=== PATIENT | female | born 1985 | race Caucasian/White ===

== ENCOUNTER 2019-11-12 21:34 | Emergency (ER) | payer MEDICAID ==
[2019-11-12] MEDS ORDERED: KETOROLAC 60 MG/2 ML VIAL IM STA (22:59)
--- NOTE | 2019-11-12 23:35 | ED ---
Abdominal Pain HPI - General Chief Complaint: Abdominal Pain Stated Complaint: Cyst on ovary Time Seen by Provider: 11/12/19 22:17 Source: patient Mode of arrival: ambulatory Limitations: no limitations - History of Present Illness Initial Comments: Patient is a 34-year-old female presenting to emergency Department with complaints of left-sided ovary pain 2 days. Patient was seen at [facility] last month and was diagnosed with a 3 cm left ovarian cyst. She did have a follow-up appointment with an PEN RULER OPERATOR and they started her on control pills to help with her symptoms. She started those yesterday. Patient is having increased pain the last 2 days. She states the pain feels the same as it did before. She denies history of abdominal surgeries. She denies history of diverticulitis. She denies fever, vomiting, diarrhea. She does admit to mild nausea when the pain increases. She has no other complaints at this time. Apparently ER, patient was slightly tachycardia at 112, rest of vitals normal. - Related Data Allergies Allergy/AdvReac Type Severity Reaction Status Date / Time No Known Allergies Allergy Verified 11/12/19 21:55 Review of Systems ROS Statement: Those systems with pertinent positive or pertinent negative responses have been documented in the HPI. ROS Other: All systems not noted in ROS Statement are negative. Past Medical History Past Medical History: GERD/Reflux Additional Past Medical History / Comment(s): ovarian cyst History of Any Multi-Drug Resistant Organisms: None Reported Past Surgical History: Adenoidectomy, Tonsillectomy Past Psychological History: No Psychological Hx Reported Smoking Status: Never smoker Past Alcohol Use History: Occasional Past Drug Use History: Marijuana General Exam - General Exam Comments Initial Comments: GENERAL: Well-appearing, well-nourished and in no acute distress. HEAD: Atraumatic, normocephalic. EYES: Pupils equal round and reactive to light, extraocular movements intact, sclera anicteric, conjunctiva are normal. ENT: TMs normal, nares patent, oropharynx clear without exudates. Moist mucous membranes. NECK: Normal range of motion, supple without lymphadenopathy or JVD. LUNGS: Breath sounds clear to auscultation bilaterally and equal. No wheezes rales or rhonchi. HEART: Regular rate and rhythm without murmurs, rubs or gallops. ABDOMEN: Left lower quadrant tenderness, no other abdominal pain. Soft, normoactive bowel sounds. No guarding, no rebound. No masses appreciated. : Deferred EXTREMITIES: Normal range of motion, no pitting or edema. No clubbing or cyanosis. NEUROLOGICAL: Normal speech, normal gait. PSYCH: Normal mood, normal affect. SKIN: Warm, Dry, normal turgor, no rashes or lesions noted. Limitations: no limitations Course Vital Signs 11/12/19 11/13/19 21:49 00:31 Temperature 99.3 F 98.3 F Pulse Rate 112 H 88 Respiratory 18 16 Rate Blood Pressure 127/80 126/80 O2 Sat by Pulse 99 97 Oximetry Medical Decision Making - Medical Decision Making Patient is 34-year-old female presenting with left lower quadrant pain. She has known left ovarian cyst. I attempted to get records from [facility] from patient's recent visit however they declined to send over records. Given this I ordered an ultrasound. Ultrasound shows an enlarged left ovary that could relate to a hemorrhagic cyst. No evidence of ovarian torsion. Patient will follow up with PEN RULER OPERATOR. Urine is normal, non. She will continue with control pills that she is a 29. Prescribed. Referral to an PEN RULER OPERATOR was given. Patient stable for discharge at this time and she is in agreement with this plan of care. Case discussed with Dr. quiles. - Lab Data Lab Results 11/12/19 11/12/19 Range/Units 23:38 23:38 Urine Color Yellow Urine Appearance Cloudy H (Clear) Urine pH 5.5 (5.0-8.0) Ur Specific [place] 1.028 (1.001-1.035) Urine Protein 1+ H (Negative) Urine Glucose (UA) Negative (Negative) Urine Ketones Negative (Negative) Urine Blood Large H (Negative) Urine Nitrite Negative (Negative) Urine Bilirubin Negative (Negative) Urine Urobilinogen <2.0 (<2.0) mg/dL Ur Leukocyte Esterase Small H (Negative) Urine RBC 12 H (0-5) /hpf Urine WBC 10 H (0-5) /hpf Ur Squamous Epith Cells 4 (0-4) /hpf Urine Bacteria Rare H (None) /hpf Hyaline Casts 1 (0-2) /lpf Urine Mucus Moderate H (None) /hpf Urine HCG, Qual Not Detected (Not Detectd) Disposition Clinical Impression: Left ovarian cyst, Abdominal pain Disposition: HOME SELF-CARE Condition: Stable Instructions (If sedation given, give patient instructions): Ovarian Cyst (ED) Additional Instructions: Please return to the Emergency Department if symptoms worsen or any other concerns. With PEN RULER OPERATOR as discussed. Is patient prescribed a controlled substance at d/c from ED?: No Referrals: Jaskaran Nassar DO [Primary Care Provider] - 1-2 days Sher Morillo MD [STAFF PHYSICIAN] - 1-2 days
--- NOTE | 2019-11-12 23:44 | US ---
EXAMINATION TYPE: US transvaginal DATE OF EXAM: 11/12/2019 COMPARISON: NONE CLINICAL HISTORY: LLQ pain, hx of large left cyst. Left pelvic pain, history of ovarian cysts, gravid a 1, para 1, patient on control. TECHNIQUE: Transvaginal ER exam. Date of LMP: 11/11/2019 EXAM MEASUREMENTS: Uterus: 7.7 x 3.5 x 4.2 cm Endometrial Stripe: 0.4 cm Right Ovary: not seen Left Ovary: 6.5 x 5.0 x 5.9 cm Difficult and limited study due to patient body habitus 1. Uterus: heterogeneous 2. Endometrium: wnl 3. Right Ovary: not seen 4. Left Ovary: 4.1 x 4.2 x 4.2cm isoechoic mass Spectral, color and waveform doppler imaging shows good arterial and venous flow within the left ov jf; there is no evidence for ovarian torsion within the left ovary. 5. Bilateral Adnexa: wnl 6. Posterior cul-de-sac: wnl IMPRESSION: Normal uterus and endometrium. Enlarged left ovary that could relate to the presence of hemorrhagic cyst. Follow-up is recommended. No evidence of ovarian torsion. Right ovary not seen.
[2019-11-12 23:53] LABS: Appearance,Urine Cloudy (Clear); Bacteria,Urine Rare /hpf; Bilirubin,Urine Negative (Negative); Blood,Urine Large (Negative); Color,Urine Yellow; Glucose,Urine (UA) Negative (Negative); Hyaline Casts,Urine 1 /lpf (0-2); Ketones,Urine Negative (Negative); Leukocyte Esterase,Urine Small (Negative); Mucus,Urine Moderate /hpf; Nitrite,Urine Negative (Negative); PH, Urine 5.5 (5.0-8.0); Protein,Urine 1+ (Negative); RBC,Urine 12 /hpf (0-5); Specific Gravity,Urine 1.028 (1.001-1.035); Squamous Epithelial Cell,Urine 4 /hpf (0-4); Urobilinogen,Urine <2.0 mg/dL (<2.0); WBC,Urine 10 /hpf (0-5)
[2019-11-13 00:31] VITALS: BP 126/80; PULSE 88; RESP 16; TEMP 98.3
== END 2019-11-13 00:45 | disposition home or self-care (01) ==
LOC: EC 21:34
DX: N83.202 Unspecified ovarian cyst, left side (principal); R11.0 Nausea; Z79.3 Long term (current) use of hormonal contraceptives
CPT/HCPCS: 81001; 81025; 93976; 76830; 99284; 96372; J1885

== ENCOUNTER 2025-01-02 13:53 | Emergency (ER) | payer MEDICAID ==
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
[2025-01-02] MEDS: MORPHINE SULFATE 4 MG/ML SYRINGE IVP PRN ×2 (14:14→14:48)
[2025-01-02] MEDS: SODIUM CHLORIDE 0.9% 1,000 ML IV STA (14:17)
--- NOTE | 2025-01-02 14:38 | XR ---
EXAMINATION TYPE: XR forearm RT DATE OF EXAM: 01/02/2025 2:29 PM COMPARISON: None. CLINICAL INDICATION: Female, 39 years old with history of wrist deformity, pain TECHNIQUE: XR forearm RT XX views were obtained. FINDINGS: Comminuted and angulated distal radial fracture with overriding fracture components seen. Intra-artic ular extension not excluded. Soft tissue edema and deformity seen. No additional fractures are eviden t at this time. IMPRESSION: As above [facility], , 01/02/2025 2:36 PM
[2025-01-02] MEDS: PROPOFOL 10 MG/ML 20 ML VIAL IV ONE (15:02)
--- NOTE | 2025-01-02 15:35 | XR ---
EXAMINATION TYPE: XR wrist limited RT DATE OF EXAM: 01/02/2025 CLINICAL HISTORY: pain TECHNIQUE: 2 postreduction views obtained COMPARISON: None. FINDINGS: Previously described comminuted distal radial fracture is redemonstrated with slightly improved align ment. Overlying cast material does obscure fine bony detail. No additional fractures seen. IMPRESSION: Slightly improved alignment [facility], , 01/02/2025 3:33 PM
[2025-01-02 15:53] VITALS: BP 136/77; PULSE 88; RESP 17
[2025-01-02] MEDS: HYDROmorphone 0.5 MG/0.5 ML SYRINGE IVP STA (16:06)
[2025-01-02 16:22] VITALS: TEMP 98
== END 2025-01-02 16:22 | disposition home or self-care (01) ==
LOC: EC 13:53
DX: S52.501A Unspecified fracture of the lower end of right radius, initial encounter for closed fracture (principal); W18.30XA Fall on same level, unspecified, initial encounter; Y93.51 Activity, roller skating (inline) and skateboarding
CPT/HCPCS: 73090; 73100; 25605; 99283; 96374; 96375; 96376; 96361; J2270; J2704; J1171

== ENCOUNTER → 2025-01-07 | Outpatient (CLI) | payer MEDICAID ==
--- NOTE | 2025-01-07 17:07 | CT ---
EXAMINATION TYPE: CT wrist RT wo con CT DLP: 104.2 mGycm, Automated exposure control for dose reduction was used. DATE OF EXAM: 01/07/2025 4:51 PM COMPARISON: Right wrist and forearm radiographs 01/02/2025. CLINICAL INDICATION:Female, 39 years old w ith history of S52.591A FRACTURES OF LOWER END OF RIGHT RADIUS; PHH, Pre-surgical planning of right w rist. TECHNIQUE: Axial images were obtained of the right wrist without the use of IV contrast. Additional coronal and sagittal reformatted images and soft tissue and bone window were obtained for review. 3-D reconstruction was created on a separate workstation. FINDINGS: Redemonstration of comminuted mildly displaced impacted fracture of the distal left radial metaphysis with extension into the radiocarpal joint. There is approximately 5 mm of shortening with volar apex angulation. There is surrounding soft tissue swelling. No sizable joint effusion. The carp al bones appear intact. No other fractures identified. No dislocation. No radiopaque foreign body julio ntified. IMPRESSION: Redemonstration of comminuted mildly displaced impacted fracture of the distal left radius with intra -articular extension into the radiocarpal joint. Volar apex angulation. [facility], , 01/07/2025 5:05 PM
== END | disposition home or self-care (01) ==
LOC: RADCTMAIN 15:27
PROVIDERS: ATTEND Orthopaedic Surgery
DX: S52.591A Other fractures of lower end of right radius, initial encounter for closed fracture (principal); S52.572A Other intraarticular fracture of lower end of left radius, initial encounter for closed fracture